=== PATIENT | female | born 1985 | race Caucasian/White ===

== ENCOUNTER 2020-08-09 | Outpatient (REF) | payer BC, SELFPAY ==
[2020-08-10 14:20] LABS: Influenza A PCR NEGATIVE (Negative); Influenza B PCR NEGATIVE (Negative); Resp Syncy Virus RNA Qual PCR NEGATIVE (Negative); SARS COV2 PCR INHOUSE NEGATIVE (Negative)
== END 2020-08-09 00:01 | disposition home or self-care (01) ==
LOC: HO.LNP
PROVIDERS: Visit Provider Nurse Practitioner Family
DX: R51.9 Headache, unspecified (principal)
CPT/HCPCS: 0241U; U0003

== ENCOUNTER 2020-08-09 16:10 | Outpatient (REF) | payer BC, SELFPAY | END 2020-08-09 16:11 | disposition home or self-care (01) | LOC: HO.LAB 16:10 | PROVIDERS: Visit Provider Nurse Practitioner Family | DX: Z13.89 Encounter for screening for other disorder (principal) ==

== ENCOUNTER 2020-10-05 10:35 | Outpatient (REF) | payer BC, SELFPAY ==
[2020-10-07 21:17] LABS: TS Negative Control Passed; TS Panel A 0; TS Panel B 0; TS Positive Control Passed; TSpotTB Negative (SeeBelow)
== END 2020-10-05 10:36 | disposition home or self-care (01) ==
LOC: HO.HMGCLDS 10:35
PROVIDERS: PCP Nurse Practitioner Family; Visit Provider Nurse Practitioner Family
DX: Z11.1 Encounter for screening for respiratory tuberculosis (principal)
CPT/HCPCS: 36415; 86481

== ENCOUNTER 2022-06-28 14:43 | Outpatient (REF) | payer BC, SELFPAY ==
[2022-06-28 16:31] LABS: MANUAL DIFF FLAG NO
[2022-06-28 16:34] LABS: Basophils Absolute Auto 0.1 X10*3/uL (0.0-0.2); Basophils Percent Auto 0.7 % (0-2); Eosinophils Absolute Auto 0.1 X10*3/uL (0.0-0.4); Eosinophils Percent Auto 0.9 % (0-4); Hematocrit 40.1 % (37.0-47.0); Hemoglobin 13.9 g/dl (12.0-16.0); Imm Gran Abs Auto 0.03 X10*3/uL (0.00-0.03); Imm Gran Pct Auto 0.4 % (0.0-0.4); Lymphocytes Absolute Auto 2.5 X10*3/uL (1.2-4.9); Lymphocytes Percent Auto 30.4 % (20-40); Mean Corpuscular HGB Conc 34.7 g/dl (31.0-35.0); Mean Corpuscular Volume 86.6 fL (80.0-98.0); Mean Platelet Volume 11.8 fL (9.4-12.3); Monocytes Absolute Auto 0.4 X10*3/uL (0.1-1.2); Monocytes Percent Auto 4.4 % (2-11); Neutrophils Absolute Auto 5.2 x10*3/uL (2.0-8.3); Neutrophils Percent Auto 63.2 % (45-73); Platelet Count 211 X10*3/uL (160-400); Red Blood Count 4.63 X10*6/uL (4.20-5.50); Red Cell Distribution Width 12.2 % (11.0-16.0); White Blood Count 8.2 X10*3/uL (4.8-10.8)
[2022-06-28 16:45] LABS: Appearance Urine Clear; Color Urine Yellow; Glucose Urine UA Negative (Negative); Leukocyte Esterase Urine Negative (Negative); Nitrite Urine Negative (Negative); PH 5.5 (5.0-9.0); Specific Gravity - Urine >= 1.030 (1.005-1.025); Urine Blood Negative (Negative); Urine Ketones 15 mg/dL (Negative); Urine Protein Negative (Neg-Trace)
[2022-06-28 16:45] LABS: Alanine Aminotransferase 21 U/L (0-31); Albumin Level 4.4 g/dL (3.5-5.0); Alkaline Phosphatase 61 U/L (39-117); Anion Gap 15 (12-20); Aspartate Amino Transferase 21 U/L (5-31); Bilirubin Total 0.8 mg/dL (0.0-1.0); Blood Urea Nitrogen 12 mg/dL (9-16); Carbon Dioxide 25 mmol/L (22-29); Chloride 99 mmol/L (96-108); Cholesterol 178 mg/dL; Estimated Glomerular Filt Rate > 60; Glucose Fasting 79 mg/dL (60-99); HDL Cholesterol 67 mg/dL; LDL Cholesterol Calculated 100 mg/dl; Potassium 3.9 mmol/L (3.3-5.1); Sodium 135 mmol/L (135-145); Total Protein 7.1 g/dL (6.5-8.0); Triglycerides 57 mg/dL
[2022-06-28 17:05] LABS: TSH reflex Free T4 0.62 uIU/mL (0.32-4.0)
== END 2022-06-28 14:44 | disposition home or self-care (01) ==
LOC: HO.HMGCLDS 14:43
PROVIDERS: PCP Nurse Practitioner Family; Visit Provider Nurse Practitioner Family
DX: Z00.00 Encounter for general adult medical examination without abnormal findings (principal)
CPT/HCPCS: 36415; 80053; 80061; 81003; 84443; 85025

== ENCOUNTER 2023-03-05 10:56 | Outpatient (REF) | payer BC, SELFPAY ==
[2023-03-05 13:54] LABS: MANUAL DIFF FLAG NO
[2023-03-05 14:04] LABS: Basophils Absolute Auto 0.1 X10*3/uL (0.0-0.2); Eosinophils Absolute Auto 0.1 X10*3/uL (0.0-0.4); Eosinophils Percent Auto 1.2 % (0-4); Hematocrit 40.4 % (37.0-47.0); Hemoglobin 13.8 g/dl (12.0-16.0); Imm Gran Abs Auto 0.01 X10*3/uL (0.00-0.03); Imm Gran Pct Auto 0.2 % (0.0-0.4); Lymphocytes Absolute Auto 1.9 X10*3/uL (1.2-4.9); Lymphocytes Percent Auto 30.7 % (20-40); Mean Corpuscular HGB Conc 34.2 g/dl (31.0-35.0); Mean Corpuscular Hemoglobin 29.9 pg (27.0-33.0); Mean Corpuscular Volume 87.4 fL (80.0-98.0); Monocytes Absolute Auto 0.2 X10*3/uL (0.1-1.2); Monocytes Percent Auto 3.8 % (2-11); Neutrophils Absolute Auto 3.8 x10*3/uL (2.0-8.3); Neutrophils Percent Auto 63.1 % (45-73); Platelet Count 218 X10*3/uL (160-400); Red Blood Count 4.62 X10*6/uL (4.20-5.50); Red Cell Distribution Width 12.8 % (11.0-16.0)
[2023-03-05 14:23] LABS: Alanine Aminotransferase 12 U/L (0-31); Albumin Level 4.3 g/dL (3.5-5.0); Alkaline Phosphatase 62 U/L (39-117); Anion Gap 11 (12-20); Aspartate Amino Transferase 13 U/L (5-31); Bilirubin Total 0.8 mg/dL (0.0-1.0); Blood Urea Nitrogen 11 mg/dL (9-16); C Reactive Protein 0.35 mg/dL (< or = 0.50); Calcium 9.1 mg/dL (8.4-10.2); Carbon Dioxide 27 mmol/L (22-29); Chloride 104 mmol/L (96-108); Estimated Glomerular Filt Rate > 60; Glucose Random 89 mg/dL (60-115); Potassium 4.1 mmol/L (3.3-5.1); Sodium 138 mmol/L (135-145); Total Protein 7.1 g/dL (6.5-8.0)
[2023-03-05 14:40] LABS: Erythrocyte Sedimentation Rate 3 MM/HR (0-20)
[2023-03-06 17:27] LABS: Adenovirus F 40/41 Not Detected (Not Detect.); Astrovirus Not Detected (Not Detect.); Campylobacter Not Detected (Not Detect.); Cryptosporidium Not Detected (Not Detect.); Cyclospora cayetanensis Not Detected (Not Detect.); E. coli EAEC Not Detected (Not Detect.); E. coli EPEC Not Detected (Not Detect.); E. coli ETEC Not Detected (Not Detect.); E. coli STEC Not Detected (Not Detect.); Entamoeba histolytica Not Detected (Not Detect.); Giardia lamblia Not Detected (Not Detect.); Norovirus GI/GII Not Detected (Not Detect.); Plesiomonas shigelloides Not Detected (Not Detect.); Rotavirus A Not Detected (Not Detect.); Salmonella Not Detected (Not Detect.); Sapovirus Not Detected (Not Detect.); Shigella sp./EIEC Not Detected (Not Detect.); Vibrio Not Detected (Not Detect.); Vibrio Cholerae Not Detected (Not Detect.); Yersinia enterocolitica Not Detected (Not Detect.)
== END 2023-03-05 10:57 | disposition home or self-care (01) ==
LOC: HO.HMGCLDS 10:56
PROVIDERS: PCP Nurse Practitioner Family; Visit Provider Nurse Practitioner Family
DX: R19.7 Diarrhea, unspecified (principal)
CPT/HCPCS: 36415; 80053; 85025; 85652; 86140; 87338; 87493; 87507

== ENCOUNTER 2023-07-31 13:28 | Outpatient (AMB) | payer BC, SELFPAY ==
--- NOTE | 2023-07-31 13:33 | A.OFFPC_ITS ---
Vital Signs 07/31/23 13:36 Height 5 ft 5 in Weight 170 lb BMI 28.3 BP 120/80 Blood Pressure Location Rt brachial Position Sitting Pulse 82 Pulse Source Pulse Oximeter Pulse Oximetry (%) 98 Oxygen Delivery Method Room Air Intake Visit Reasons: Follow up Allergies No Known Allergies [No Known Allergies*] Allergy (Verified 07/31/23 13:37) Medication List - Last Reconciled 07/31/23 by KATERIN Cook sertraline 25 mg PO DAILY 30 days Tobacco use date assessed: 03/05/23 Dental Screening Dental Screen Date: 07/31/23 Did you have a dental visit in the last 12 months?: Yes Did you have a dental problem in the last 6 months where you did not have access to dental care?: No Was dental information given to patient?: Patient has dentist HPI Follow up HPI Details Pt reports a lot of stress and anxiety due to her home and work l rub[employer]. Pt is working to find her own therapist, which i highly recommended. Will start sertraline 25mg. Pt is teary eyed today. Denies any SI and HI. Pt also c/o new onset migraines since April. She reports never having migraines in the past. She does not experience an aura but does have photophobia and sonophobia. Pt reports having these three times a week. She has never had imaging of her head, will order. Pt states that tylenol and ibuprofen do help somewhat. [facility] Surgical History History of section Hx of breast surgery Family History Father HTN (hypertension) Mother HTN (hypertension) Stroke Fibromyalgia Maternal Grandmother CVD (cardiovascular disease) Cancer Maternal Grandfather No problems noted. Paternal Grandmother Cancer Paternal Grandfather No problems noted. Brother No problems noted. Son No problems noted. Daughter No problems noted. Other Substance abuse Social History Housing: House Patient Tobacco Use Status: Never used Tobacco e-Cigarette/Vaping Use: Never Used Second Hand Smoke Exposure: No Current occupational status: employed Current occupational exposures/hazards: Yes Cognitive needs: No Hearing needs: No Vision needs: No Questionnaire PHQ-9 Over the last 2 weeks, how often have you been bothered by any of the following problems? [id number] - PHQ-9 Billing: Patient declined-do not bill Source: Developed by Drs. Bayron Pzoo, Cody Castillo and colleagues, with an educational andrzej from [employer]. Thrive Questionnaire Date Thrive assessed: 07/31/23 I am a: Patient What is your living situation today?: I have a steady place to live Within the past 12 months, did the food you bought not last and you didn't have the money to get more?: Never true Within the past 12 months, did you worry whether your food would run out before you got money to buy more?: Never true AUDIT C Alcohol Use Questionnaire (AUDIT-C) 1. How often do you have a drink containing alcohol?: Monthly or less 2. How many drinks containing alcohol do you have on a typical day when you are drinking?: 1 or 2 3. How often do you have six or more drinks on one occasion?: Never Total Score: 1 PUSHPA-7 AMB Questionnaire PUSHPA-7 Date PUSHPA - 7 assessed: 07/31/23 Feeling nervous, anxious, or on edge: 3 = Nearly every day Not being able to stop or control worryin = Nearly every day Worrying too much about different things: 3 = Nearly every day Trouble relaxin = Nearly every day Being so restless that it is hard to sit still: 2 = More than half the days Becoming easily annoyed or irritable: 3 = Nearly every day Feeling afraid as if something awful might happen: 2 = More than half the days Total PUSHPA-7 score (0-4 normal; 5-9 mild; 10-14 moderate; 15-21 severe): 19 Source: Developed by Drs. Bayron Pozo, Cody Castillo and colleagues, with an educational andrzej from [employer]. Review of Systems Const Reports as per HPI Physical exam (Primary Care) Vital Signs: Last Vital Signs Pulse 82 07/31/23 13:36 BP 120/80 07/31/23 13:36 Pulse Ox 98 07/31/23 13:36 Oxygen Delivery Method Room Air 07/31/23 13:36 BMI result Body Mass Index 28.3 Tobacco/Smoking Status: Tobacco use Status Tobacco use date assessed 03/05/23 07/31/23 13:33 Patient Tobacco Use Status Never used Tobacco 07/31/23 13:33 e-Cigarette/Vaping Use Never Used 07/31/23 13:33 Thrive Assessment: Date of Thrive Assessment Date Thrive assessed 07/31/23 07/31/23 14:27 Const General: cooperative Orientation/consciousness: patient oriented x3 Resp Effort & Inspection: normal respiratory effort Auscultation: clear to auscultation bilaterally Cardio Rate: regular rate Rhythm: regular rhythm Heart sounds: S1 normal heart sound present and S2 normal heart sound present Neuro General: patient oriented x3 and CN's II-XI intact bilaterally Psych Appearance: grossly normal Mental Status: mental status grossly normal Speech and movement: Normal speech and movement present Affect: normal affect Attitude: cooperative Thought process: Normal thought process present Thought content: Normal thought content present Insight: Good insight present (Psych) Judgement: Good judgement present (Psych) Assessment and Plan Assessment & Plan (1) New onset headache: Code(s): R51.9 - Headache, unspecified Orders: Orders CT head/brain wo IV con Today R51.9 - Headache, unspecified Medications: New sertraline 25 mg PO DAILY 30 days 30 tabs 2RF sertraline 25 mg PO DAILY 30 days 30 tabs 2RF Discontinued fluoxetine Discontinued Reason: Duplicate 10 mg PO DAILY 90 days 90 caps 2RF Coding Level of Care Code Est Pt Level 3 (07123) Diagnoses New onset headache R51.9
[2023-07-31 13:36] VITALS: BP 120/80; PULSE 82; O2SAT 98; BMI 28.3
== END 2023-07-31 16:53 | disposition home or self-care (01) ==
PROVIDERS: PCP Nurse Practitioner Family; Visit Provider Nurse Practitioner Family
DX: R51.9 Headache, unspecified (principal)
CPT/HCPCS: 99213

== ENCOUNTER 2023-08-14 08:22 | Outpatient (AMB) | payer BC, SELFPAY ==
[2023-08-14 08:48] VITALS: BP 130/80; PULSE 76; TEMP 36.6; O2SAT 98; BMI 28.3
--- NOTE | 2023-08-14 08:48 | AM.OFFWIN_ITS ---
Intake Vital Signs 08/14/23 08:48 Height 5 ft 5 in Weight 170 lb BMI 28.3 BP 130/80 Blood Pressure Location Rt brachial Position Sitting Pulse 76 Pulse Source Pulse Oximeter Temp 97.8 F Temp Source Temporal Artery Scan Pulse Oximetry (%) 98 Intake Visit Reasons: EP, cough, laryngitis ([phone]) Intake Note: pt is here for c/o cough, laryngitis Patient Tobacco Use Status: Never used Tobacco Allergies No Known Allergies [No Known Allergies*] Allergy (Verified 08/14/23 09:03) Medication List - Last Reconciled 08/14/23 by Rome Barber MD azithromycin (Zithromax) take 500 mg today (day 1), then 250 mg for 4 days (days 2-5) PO prednisone 60 mg (3 x 20 mg) PO DAILY sertraline 25 mg PO DAILY 30 days Do you need a note to return to daycare/school/sports/work: Yes HPI EP, cough, laryngitis ([phone]) HPI Details Patient presents for a sick visit. Reporting symptoms of sinus congestion, sore throat and difficulty swallowing. Low-grade fever. No family member is sick. No recent travel. Patient reports symptoms of malaise and fatigue. [facility] Surgical History History of section Hx of breast surgery Family History Father HTN (hypertension) Mother HTN (hypertension) Stroke Fibromyalgia Maternal Grandmother CVD (cardiovascular disease) Cancer Maternal Grandfather No problems noted. Paternal Grandmother Cancer Paternal Grandfather No problems noted. Brother No problems noted. Son No problems noted. Daughter No problems noted. Other Substance abuse Social History Housing: House Patient Tobacco Use Status: Never used Tobacco e-Cigarette/Vaping Use: Never Used Second Hand Smoke Exposure: No Current occupational status: employed Current occupational exposures/hazards: Yes Cognitive needs: No Hearing needs: No Vision needs: No Physical Exam Vital Signs: Last Vital Signs Temp 97.8 F 08/14/23 08:48 Pulse 76 08/14/23 08:48 BP 130/80 08/14/23 08:48 Pulse Ox 98 08/14/23 08:48 BMI result Body Mass Index 28.3 Const General: cooperative and healthy appearing Nutritional Appearance: well nourished Orientation/consciousness: patient oriented x3 Limitations: no limitations HEENT Head: Yes normal to inspection Eyes General: appearance normal, both eyes and all related structures Neck Neck: Yes normal visual inspection Chest Chest palpation & inspection: normal palpation of entire chest wall Resp Effort & Inspection: normal respiratory effort Neuro General: patient oriented x3 Assessment & Plan Assessment & Plan (1) Upper respiratory tract infection: Code(s): J06.9 - Acute upper respiratory infection, unspecified Plan: Antibiotics ordered. Increase fluid intake. Tylenol for aches and pains. If symptoms worsen, follow-up here for a recheck. Medications: New azithromycin (Zithromax) take 500 mg today (day 1), then 250 mg for 4 days (days 2-5) PO 6 tabs 0RF prednisone 60 mg (3 x 20 mg) PO DAILY 9 tabs 0RF Coding Level of Care Code Est Pt Level 3 (90341) Diagnoses Upper respiratory tract infection J06.9
== END 2023-08-14 09:09 | disposition home or self-care (01) ==
PROVIDERS: PCP Nurse Practitioner Family; Visit Provider Internal Medicine
DX: J06.9 Acute upper respiratory infection, unspecified (principal)
CPT/HCPCS: 99213

== ENCOUNTER 2023-08-20 13:46 | Outpatient (AMB) | payer BC, SELFPAY ==
[2023-08-20 14:35] VITALS: BP 110/72; PULSE 106; TEMP 36.2; O2SAT 98; BMI 28.3
--- NOTE | 2023-08-20 14:35 | AM.OFFWIN_ITS ---
Intake Vital Signs 08/20/23 14:35 Height 5 ft 5 in Weight 170 lb BMI 28.3 BP 110/72 Blood Pressure Location Lt brachial Position Sitting Pulse 106 H Pulse Source Pulse Oximeter Temp 97.2 F Temp Source Temporal Artery Scan Pulse Oximetry (%) 98 Oxygen Delivery Method Room Air Intake Visit Reasons: EST/cold and flu symptoms/ [phone] Intake Note: pt is here for c.o follow up from last weeks visit, finished medication but no relief Patient Tobacco Use Status: Never used Tobacco Allergies No Known Allergies [No Known Allergies*] Allergy (Verified 08/20/23 15:28) Medication List - Last Reconciled 08/20/23 by Rome Barber MD sertraline 25 mg PO DAILY 30 days Do you need a note to return to daycare/school/sports/work: Yes HPI EST/cold and flu symptoms/ [phone] HPI Details 38-year-old female presents to the [facility] for a sick visit. Patient was last seen for an upper respiratory tract infection last week. She is completed the antibiotic and prednisone. Continues to feel congested and tight. Reports no fever or chills. Continues to have headaches. [facility] Surgical History History of section Hx of breast surgery Family History Father HTN (hypertension) Mother HTN (hypertension) Stroke Fibromyalgia Maternal Grandmother CVD (cardiovascular disease) Cancer Maternal Grandfather No problems noted. Paternal Grandmother Cancer Paternal Grandfather No problems noted. Brother No problems noted. Son No problems noted. Daughter No problems noted. Other Substance abuse Housing: House Patient Tobacco Use Status: Never used Tobacco e-Cigarette/Vaping Use: Never Used Second Hand Smoke Exposure: No Current occupational status: employed Current occupational exposures/hazards: Yes Cognitive needs: No Hearing needs: No Vision needs: No Physical Exam Vital Signs: Last Vital Signs Temp 97.2 F 08/20/23 14:35 Pulse 106 H 08/20/23 14:35 BP 110/72 08/20/23 14:35 Pulse Ox 98 08/20/23 14:35 Oxygen Delivery Method Room Air 08/20/23 14:35 BMI result Body Mass Index 28.3 Const General: cooperative and healthy appearing Nutritional Appearance: well nourished Orientation/consciousness: patient oriented x3 Limitations: no limitations HEENT Head: Yes normal to inspection Eyes General: appearance normal, both eyes and all related structures Neck Neck: Yes normal visual inspection Chest Chest palpation & inspection: normal palpation of entire chest wall Resp Effort & Inspection: normal respiratory effort Neuro General: patient oriented x3 Assessment & Plan Assessment & Plan (1) Upper respiratory tract infection: Code(s): J06.9 - Acute upper respiratory infection, unspecified Plan: Prednisone reordered. No further antibiotics needed. Rapid COVID testing done in the office was negative. Viral swab has been sent out. Note for work given. Orders: Orders XR chest 2V Today R05.9 - Cough, unspecified BinaxNOW Covid-19 Ag Today J06.9 - Acute upper respiratory infection, unspecified SARS-CoV2/FLU/RSV Today R43.9 - Unspecified disturbances of smell and taste Coding Level of Care Code Est Pt Level 4 (30027) Diagnoses Upper respiratory tract infection J06.9
== END 2023-08-20 15:42 | disposition home or self-care (01) ==
PROVIDERS: PCP Nurse Practitioner Family; Visit Provider Internal Medicine
DX: J06.9 Acute upper respiratory infection, unspecified (principal)
CPT/HCPCS: 99214

== ENCOUNTER 2023-08-20 14:48 | Outpatient (REF) | payer BC, SELFPAY ==
--- NOTE | ~2023-08-20 | XR_ITS ---
EXAMINATION: XR CHEST CLINICAL INFORMATION: Cough. COMPARISON: Chest radiograph 03/31/2020. TECHNIQUE: 2 views of the chest were obtained. FINDINGS: Normal appearance of the cardiomediastinal silhouette. No focal airspace opacities, pleural effusion or pneumothorax. No acute osseous findings. Visualized upper abdomen is within normal limits. XR/XR chest 2V IMPRESSION: No acute cardiopulmonary findings.
[2023-08-20 15:15] LABS: Binax Internal Control QC Valid; Binax Now Covid-19 Ag Negative (Negative); Binax Performed by: PAULP
[2023-08-20 17:05] LABS: Influenza A PCR NEGATIVE (Negative); Influenza B PCR NEGATIVE (Negative); Resp Syncy Virus RNA Qual PCR NEGATIVE (Negative); SARS COV2 PCR INHOUSE NEGATIVE (Negative)
== END 2023-08-20 14:49 | disposition home or self-care (01) ==
LOC: HO.HMGCX 14:48
PROVIDERS: PCP Nurse Practitioner Family; Visit Provider Internal Medicine
DX: Z11.52 Encounter for screening for COVID-19 (principal); R05.9 Cough, unspecified; J06.9 Acute upper respiratory infection, unspecified; R43.9 Unspecified disturbances of smell and taste
CPT/HCPCS: 0241U; 71046; 87811; C9803

== ENCOUNTER 2023-08-21 10:46 | Outpatient (REF) | payer BC, SELFPAY ==
[2023-08-21 13:29] LABS: MANUAL DIFF FLAG NO
[2023-08-21 13:30] LABS: Basophils Percent Auto 0.1 % (0-2); Eosinophils Percent Auto 0.1 % (0-4); Hematocrit 42.5 % (37.0-47.0); Hemoglobin 14.7 g/dl (12.0-16.0); Imm Gran Abs Auto 0.04 X10*3/uL (0.00-0.03); Imm Gran Pct Auto 0.5 % (0.0-0.4); Lymphocytes Absolute Auto 1.7 X10*3/uL (1.2-4.9); Lymphocytes Percent Auto 19.4 % (20-40); Mean Corpuscular HGB Conc 34.6 g/dl (31.0-35.0); Mean Corpuscular Hemoglobin 30.1 pg (27.0-33.0); Mean Corpuscular Volume 86.9 fL (80.0-98.0); Mean Platelet Volume 11.4 fL (9.4-12.3); Monocytes Absolute Auto 0.3 X10*3/uL (0.1-1.2); Monocytes Percent Auto 3.9 % (2-11); Neutrophils Absolute Auto 6.7 x10*3/uL (2.0-8.3); Platelet Count 270 X10*3/uL (160-400); Red Blood Count 4.89 X10*6/uL (4.20-5.50); White Blood Count 8.8 X10*3/uL (4.8-10.8)
[2023-08-21 13:43] LABS: Alanine Aminotransferase 16 U/L (0-31); Albumin Level 4.4 g/dL (3.5-5.0); Alkaline Phosphatase 69 U/L (39-117); Anion Gap 14 (12-20); Aspartate Amino Transferase 16 U/L (5-31); Bilirubin Total 0.7 mg/dL (0.0-1.0); Blood Urea Nitrogen 9 mg/dL (9-16); Calcium 9.2 mg/dL (8.4-10.2); Carbon Dioxide 26 mmol/L (22-29); Chloride 101 mmol/L (96-108); Estimated Glomerular Filt Rate > 60; Glucose Random 93 mg/dL (60-115); Potassium 3.5 mmol/L (3.3-5.1); Sodium 137 mmol/L (135-145); Total Protein 7.7 g/dL (6.5-8.0)
== END 2023-08-21 10:47 | disposition home or self-care (01) ==
LOC: HO.HMGCLDS 10:46
PROVIDERS: PCP Nurse Practitioner Family; Visit Provider Nurse Practitioner Family
DX: J98.9 Respiratory disorder, unspecified (principal)
CPT/HCPCS: 36415; 80053; 85025

== ENCOUNTER 2023-08-30 16:20 | Outpatient (AMB) | payer BC, SELFPAY ==
--- NOTE | 2023-08-30 16:15 | A.OFFPC_ITS ---
Vital Signs 08/30/23 16:24 Height 5 ft 5 in Weight 184 lb BMI 30.6 BP 120/78 Blood Pressure Location Rt brachial Position Sitting Pulse 64 Pulse Source Pulse Oximeter Intake Visit Reasons: Annual PE Intake Note: Patient here for physical exam. up to date on pap. Allergies No Known Allergies [No Known Allergies*] Allergy (Verified 08/30/23 16:26) Medication List - Last Reconciled 08/30/23 by KATERIN Cook sertraline 25 mg PO DAILY 30 days Tobacco use date assessed: 03/05/23 Dental Screening Dental Screen Date: 08/30/23 Did you have a dental visit in the last 12 months?: Yes Did you have a dental problem in the last 6 months where you did not have access to dental care?: No Was dental information given to patient?: Patient has dentist HPI Annual PE HPI Details Pt is here for a PE. Will order labs. 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 started sertraline one month ago, she does report noticing a slight difference in anxiety since starting this med. Will follow up with her [facility] Surgical History Hx of breast surgery History of section Family History Father HTN (hypertension) Mother HTN (hypertension) Stroke Fibromyalgia Maternal Grandmother CVD (cardiovascular disease) Cancer Maternal Grandfather No problems noted. Paternal Grandmother Cancer Paternal Grandfather No problems noted. Brother No problems noted. Son No problems noted. Daughter No problems noted. Other Substance abuse Social History Housing: House Patient Tobacco Use Status: Never used Tobacco e-Cigarette/Vaping Use: Never Used Second Hand Smoke Exposure: No Current occupational status: employed Current occupational exposures/hazards: Yes Cognitive needs: No Hearing needs: No Vision needs: No Questionnaire Thrive Questionnaire Date Thrive assessed: 07/31/23 AUDIT C Alcohol Use Questionnaire (AUDIT-C) 1. How often do you have a drink containing alcohol?: Never 3. How often do you have six or more drinks on one occasion?: Never Total Score: 0 Score Reviewed/Action Taken: No PUSHPA-7 AMB Questionnaire PUSHPA-7 Date PUSHPA - 7 assessed: 07/31/23 Source: Developed by Drs. Bayron Pozo, Clarisse Sutton, Cody Lee and colleagues, with an educational andrzej from [employer]. Review of Systems Const Denies chills and Denies fever(s) Eyes Denies blurry vision ENT Denies vertigo, Denies dizziness and Denies sore throat Card Denies chest pain at rest, Denies chest pain with activity, Denies diaphoresis, Denies dyspnea and Denies dyspnea on exertion Resp Denies cough, Denies dyspnea, Denies dyspnea on exertion and Denies wheezing GI Denies abdominal pain, Denies melena, Denies hematochezia, Denies constipation, Denies diarrhea and Denies loose stools Denies hematuria Musc Denies numbness and Denies tingling Skin/Breast Denies lesions Neuro Denies vertigo, Denies dizziness, Denies numbness and Denies tingling Psych Denies anxiety, Denies depression, Denies homicidal ideation, Denies suicidal ideation and Denies other (substance abuse) Aller/Immun Denies wheezing Physical exam (Primary Care) Vital Signs: Last Vital Signs Pulse 64 08/30/23 16:24 BP 120/78 08/30/23 16:24 BMI result Body Mass Index 30.6 Tobacco/Smoking Status: Tobacco use Status Tobacco use date assessed 03/05/23 08/30/23 16:15 Patient Tobacco Use Status Never used Tobacco 08/30/23 16:15 e-Cigarette/Vaping Use Never Used 08/30/23 16:15 Thrive Assessment: Date of Thrive Assessment Date Thrive assessed 07/31/23 08/30/23 16:15 Const General: cooperative Nutritional Appearance: well nourished Orientation/consciousness: patient oriented x3 HENMT Head: Yes normal to inspection, Yes normocephalic and Yes atraumatic Ears: TM's normal bilaterally Eyes General: appearance normal, both eyes and all related structures Alignment and Position: alignment normal and position normal Neck Neck: Yes normal visual inspection and Yes no lymphadenopathy Thyroid: Thyroid normal Resp Effort & Inspection: normal respiratory effort Auscultation: clear to auscultation bilaterally Cardio Rate: regular rate Rhythm: regular rhythm Heart sounds: S1 normal heart sound present, S2 normal heart sound present and Murmur heart sound present systolic (faint) GI Palpation (GI): Soft to palpation and nontender Auscultation: normal bowel sounds Skin Rashes: no rashes Neuro General: patient oriented x3, moves all extremities, no focal motor deficits and deep tendon reflexes 2+ bilaterally Romberg Test: Negative Psych Appearance: grossly normal Mental Status: mental status grossly normal Speech and movement: Normal speech and movement present Affect: normal affect Attitude: cooperative Thought process: Normal thought process present Thought content: Normal thought content present Insight: Good insight present (Psych) Judgement: Good judgement present (Psych) Assessment and Plan Assessment & Plan (1) Physical exam: Code(s): Z00.00 - Encounter for general adult medical examination without abnormal findings (2) Systolic murmur: Code(s): R01.1 - Cardiac murmur, unspecified Orders: Orders Complete Blood Count Auto Diff Today Z00.00 - Encounter for general adult medical examination without abnormal findings Comprehensive Gregory. Panel Fast Today Z00.00 - Encounter for general adult medical examination without abnormal findings TSH reflex Free T4 Today Z00.00 - Encounter for general adult medical examination without abnormal findings UA CC w/rflx Micro + Cult Today Z00.00 - Encounter for general adult medical examination without abnormal findings Lipid Panel Today Z00.00 - Encounter for general adult medical examination without abnormal findings CA echo transthoracic complete Today R01.1 - Cardiac murmur, unspecified Coding Level of Care Code Est Pt Prev Care 18-39y(43815) Diagnoses Physical exam Z00.00 Systolic murmur R01.1
[2023-08-30 16:24] VITALS: BP 120/78; PULSE 64; BMI 30.6
== END 2023-08-30 17:12 | disposition home or self-care (01) ==
LOC: HO.HMGC 16:20
PROVIDERS: PCP Nurse Practitioner Family; Visit Provider Nurse Practitioner Family
DX: Z00.00 Encounter for general adult medical examination without abnormal findings (principal); R01.1 Cardiac murmur, unspecified
CPT/HCPCS: 99395

== ENCOUNTER 2023-09-05 14:46 | Outpatient (REF) | payer BC, SELFPAY ==
--- NOTE | ~2023-09-05 | CT_ITS ---
EXAMINATION: CT head/brain wo IV con CLINICAL INFORMATION: Reason for Exam R51.9 - Headache, unspecified COMPARISON: None available. TECHNIQUE: Contiguous axial imaging was performed from the skull base to vertex without intravenous contrast. Sagittal and coronal reformatted images were obtained. This CT examination was performed using dose optimization techniques as appropriate, variously including the following: * Automated exposure control * Adjustment of mA and/or kV according to patient size (this includes techniques or standardized protocols for targeted exams where dose is matched to indication/reason for exam; i.e. extremities or head) Use of iterative reconstruction technique DLP: 722 mGy-cm FINDINGS: There is no evidence of acute intracranial hemorrhage. No mass-effect or ventricular shift is noted. No acute, territorial loss of serrato-white differentiation. The ventricles and sulci are appropriate in size and configuration for the patient's stated age. No depressed calvarial fracture. The paranasal sinuses are well-aerated. The mastoid air cells are clear. CT/CT head/brain wo IV con IMPRESSION: No acute intracranial hemorrhage, mass effect, or midline shift.
== END 2023-09-05 14:47 | disposition home or self-care (01) ==
LOC: HO.CT 14:46
PROVIDERS: PCP Nurse Practitioner Family; Visit Provider Nurse Practitioner Family
DX: R51.9 Headache, unspecified (principal)
CPT/HCPCS: 70450

== ENCOUNTER → 2023-09-20 07:50 | Outpatient (REF) | payer BC, SELFPAY ==
--- NOTE | 2023-09-20 07:53 | CA_ITS ---
Transthoracic Echocardiogram Patient (Last, First, Middle): Elham Recio M Gender: Female Date of : 1985 Age: 38 Procedure Date: 09/20/2023 Procedure Type: Transthoracic Echocardiogram Location: OP Height: 167.64 cm Weight: 81.65 kg BSA: 1.91 m2 Heart Rate: bpm BP: 120 / 70 mmHg Last Marker: HUMBERTO Referring MD: Sage Marks [facility] Symptoms: R01.1 - Cardiac murmur, unspecified Study Quality: Fair ECG Rhythm: Sinus Conclusions: - The left ventricular systolic function is normal. The calculated ejection fraction is 63% by biplane method. - No obvious valvular pathology seen on this study. Findings Left Ventricle Normal left ventricular cavity size. There is normal left ventricular wall thickness. The left ventricular systolic function is normal. The calculated ejection fraction is 63% by biplane method. There is no evidence of regional wall motion abnormalities. Diastolic function is normal for age. Right Ventricle Normal right ventricular cavity size and systolic function. Atria Both atria are normal in size. Aortic Valve There is a normal trileaflet aortic valve. There is no aortic valve stenosis. There is no aortic valve regurgitation. Mitral Valve The mitral valve appears normal. There is no mitral valve regurgitation. There is no mitral valve stenosis. Pulmonic Valve The pulmonic valve is likely normal. Tricuspid Valve Normal tricuspid valve structure. There is trace tricuspid valve regurgitation. There is no evidence of pulmonary hypertension. Great Vessels The asc aorta and aortic arch are normal in size. Venous The inferior vena cava is normal in size and collapses greater than 50% with inspiration. Pericardium/Pleural There is no evidence of pericardial effusion. Prior Study Comparison No prior study available for comparison. Recommendations, Care & Conclusions No obvious valvular pathology seen on this study. Measurements 2D Linear Measurements IVSd: 0.72 0.6-0.9/0.6-1.0 cm LVIDd: 4.95 3.9-5.3/4.2-5.9 cm LVIDd Index: 2.59 2.4-3.2/2.2-3.1 cm/m2 LVIDs: 3.66 2.0-3.6 cm LVPWd: 0.85 0.7-1.1 cm LA Diam: 2.60 2.7-3.8/3.0-4.0 cm LAIDs Index: 1.36 1.5-2.3 cm/m2 LV Mass: 162.51 67-162/88-224 g LV Mass Index: 85.09 43-95/49-115 g/m2 LVOT Diam: 2.10 3.0+(-)1.3 cm 2D Systolic Function EF 4C: 60.60 >55% EF 2C: 62.60 >55% EF BiP: 63.00 >55% Mitral Valve MV Pk E: 0.85 MV PK A: 0.55 MV Decel Time: 189.00 E/A: 1.60 E'Lateral: 16.40 E'Medial: 11.40 E/E' Med: 7.40 E/E' Lat: 5.20 PHT: 55.00 MVA PHT: 4.00 Decel [place]: 4.48 Aortic Valve AoV Pk Reese: 1.17 AoV Mn Reese: 0.84 AoV VTI: 0.28 AoV Pk Grad: 5.00 Aov Mn Grad: 3.00 [place] Cont.VTI: 2.43 LVOT LVOT Pk Reese: 0.84 LVOT Mn Reese: 0.59 LVOT VTI: 0.20 LVOT Pk Grad: 3.00 LVOT Mn Grad: 2.00 LVOT Diam: 2.10 LVOT Area: 3.46 Diastolic Function MV Pk E: 0.85 MV Pk A: 0.55 E/A: 1.60 E'Medial: 11.40 E/E' Med: 7.40 E' Laterial: 16.40 E/E' Lat: 5.20 Right Ventricle TAPSE (mm): 23.50 TVS' Reese: 12.60 Tricuspid Valve RA Press: 3.00 Great Vessels Aorta Sinus of Valsalva: 2.67 2.0-3.[address] [place]: 2.13 1.7-3.4 cm Ao Asc: 2.60 2.1-3.4 cm Ao Arch: 2.60 Updated in Other Vendor System with Status of Final Mann Handy MD electronically signed on 09/22/2023 11:41:57 AM with status of Final
== END ==
LOC: HO.CARD 07:50
PROVIDERS: PCP Nurse Practitioner Family; Visit Provider Nurse Practitioner Family
DX: R01.1 Cardiac murmur, unspecified (principal)
CPT/HCPCS: 93306

== ENCOUNTER → 2023-09-20 07:53 | Outpatient (BNV) | payer BC, SELFPAY | PROVIDERS: PCP Nurse Practitioner Family; Visit Provider Internal Medicine | DX: R01.1 Cardiac murmur, unspecified (principal) | CPT/HCPCS: 93306 ==

== ENCOUNTER 2023-12-20 10:02 | Outpatient (AMB) | payer BC, SELFPAY ==
[2023-12-20 10:13] VITALS: BP 118/70; PULSE 66; O2SAT 98
--- NOTE | 2023-12-20 10:13 | A.OFFPC_ITS ---
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 Accompanied by: Self / Same As Patient Allergies No Known Allergies [No Known Allergies*] Allergy (Verified 12/20/23 12:02) Medication List - Last Reconciled 12/20/23 by KATERIN Cook amitriptyline 10 mg PO BEDTIME lorazepam 0.5 mg PO DAILY PRN sertraline 25 mg PO DAILY Tobacco use date assessed: 12/20/23 Dental Screening Dental Screen Date: 12/20/23 Did you have a dental visit in the last 12 months?: Yes Did you have a dental problem in the last 6 months where you did not have access to dental care?: No Was dental information given to patient?: Patient has dentist HPI Follow up HPI Details Pt c/o intermittent anxiety attacks. She reports that her sertraline is helping. Will send lorazepam for acute anxiety attacks. Educated pt on risk of addiction, this is not a long-term med. Pt understands that they can not drive while taking this med, share this med, and to only take as prescribed. Denies any SI and HI. PFSH Surgical History Hx of breast surgery History of section Family History Father HTN (hypertension) Mother HTN (hypertension) Stroke Fibromyalgia Maternal Grandmother CVD (cardiovascular disease) Cancer Maternal Grandfather No problems noted. Paternal Grandmother Cancer Paternal Grandfather No problems noted. Brother No problems noted. Son No problems noted. Daughter No problems noted. Other Substance abuse Social History Housing: House Patient Tobacco Use Status: Never used Tobacco e-Cigarette/Vaping Use: Never Used Second Hand Smoke Exposure: No Current occupational status: employed Current occupational exposures/hazards: Yes Cognitive needs: No Hearing needs: No Vision needs: No Questionnaire Thrive Questionnaire Date Thrive assessed: 07/31/23 I am a: Patient What is your living situation today?: I have a steady place to live Within the past 12 months, did the food you bought not last and you didn't have the money to get more?: Never true Within the past 12 months, did you worry whether your food would run out before you got money to buy more?: Never true THRIVE Score: 0 AUDIT C Alcohol Use Questionnaire (AUDIT-C) 1. How often do you have a drink containing alcohol?: Never 2. How many drinks containing alcohol do you have on a typical day when you are drinking?: 1 or 2 3. How often do you have six or more drinks on one occasion?: Never Total Score: 0 PUSHPA-7 AMB Questionnaire PUSHPA-7 Date PUSHPA - 7 assessed: 07/31/23 Feeling nervous, anxious, or on edge: 1 = Several days Not being able to stop or control worryin = Several days Worrying too much about different things: 1 = Several days Trouble relaxin = Several days Being so restless that it is hard to sit still: 0 = Not at all Becoming easily annoyed or irritable: 1 = Several days Feeling afraid as if something awful might happen: 0 = Not at all Total PUSHPA-7 score (0-4 normal; 5-9 mild; 10-14 moderate; 15-21 severe): 5 Source: Developed by Drs. Bayron Pozo, Clarisse Sutton, Cody eLe and colleagues, with an educational andrzej from [employer]. Review of Systems Const Reports as per HPI Physical exam (Primary Care) Vital Signs: Last Vital Signs Pulse 66 12/20/23 10:13 BP 118/70 12/20/23 10:13 Pulse Ox 98 12/20/23 10:13 Oxygen Delivery Method Room Air 12/20/23 10:13 BMI result Body Mass Index 30.0 Tobacco/Smoking Status: Tobacco use Status Tobacco use date assessed 12/20/23 12/20/23 10:15 Patient Tobacco Use Status Never used Tobacco 12/20/23 10:15 e-Cigarette/Vaping Use Never Used 12/20/23 10:15 Thrive Assessment: Date of Thrive Assessment Date Thrive assessed 07/31/23 12/20/23 10:15 Const General: cooperative Orientation/consciousness: patient oriented x3 Resp Effort & Inspection: normal respiratory effort Auscultation: clear to auscultation bilaterally Cardio Rate: regular rate Rhythm: regular rhythm Heart sounds: S1 normal heart sound present and S2 normal heart sound present Neuro General: patient oriented x3 Psych Appearance: grossly normal Mental Status: mental status grossly normal Speech and movement: Normal speech and movement present Affect: normal affect Attitude: cooperative Thought process: Normal thought process present Thought content: Normal thought content present Insight: Good insight present (Psych) Judgement: Good judgement present (Psych) Assessment and Plan Assessment & Plan (1) Anxiety: Code(s): F41.9 - Anxiety disorder, unspecified Plan: sent low dose benzo for acute panic/anxiety attacks . may consider increasing sertraline dose in near future Medications: New lorazepam 0.5 mg PO DAILY PRN 30 tabs 0RF anxiety Coding Level of Care Code Est Pt Level 3 (33335) Diagnoses Anxiety F41.9
== END 2023-12-20 11:29 | disposition home or self-care (01) ==
PROVIDERS: PCP Nurse Practitioner Family; Visit Provider Nurse Practitioner Family
DX: F41.9 Anxiety disorder, unspecified (principal)
CPT/HCPCS: 99213

== ENCOUNTER 2023-12-20 10:49 | Outpatient (REF) | payer BC, SELFPAY ==
[2023-12-21 04:23] LABS: HBS Num1 > 1000.00 mIU/mL (0-7.99); HBc Num1 0.08 S/CO (0.00-0.79); HBsAGNum1 0.26 S/CO (0.00-0.99); Hepatitis A Antibody IgM 0.11 Index (0-0.79); Hepatitis B Core Antibody Nonreactive (Nonreactive); Hepatitis B Surface Antigen Negative (Negative); ~HepC Num1 0.15 S/CO (0.00-0.79); ~Hepatitis A Antibody IgM Nonreactive (Nonreactive); ~Hepatitis B Surface Antibody REACTIVE (Nonreactive); ~Hepatitis C Antibody Nonreactive (Nonreactive)
[2023-12-21 12:32] LABS: Rubella IgG Antibody 1.93 Index
[2023-12-23 05:13] LABS: TS Negative Control Passed; TS Panel A 0; TS Panel B 0; TS Positive Control Passed; TSpotTB Negative (Negative)
== END 2023-12-20 10:50 | disposition home or self-care (01) ==
LOC: HO.HMGCLDS 10:49
PROVIDERS: PCP Nurse Practitioner Family; Visit Provider Nurse Practitioner Family
DX: Z01.84 Encounter for antibody response examination (principal); Z28.39 Other underimmunization status
CPT/HCPCS: 36415; 86481; 86704; 86706; 86709; 86735; 86762; 86765; 86787; 86803; 87340

== ENCOUNTER 2024-09-11 08:26 | Outpatient (REF) | payer OTHER, SELFPAY ==
[2024-09-14 16:24] LABS: TS Negative Control Passed; TS Panel A 0; TS Panel B 0; TS Positive Control Passed; TSpotTB Negative (Negative)
== END 2024-09-11 08:27 | disposition home or self-care (01) ==
LOC: HO.HMGCLDS 08:26
PROVIDERS: PCP Nurse Practitioner Family; Visit Provider Nurse Practitioner Family
DX: Z11.1 Encounter for screening for respiratory tuberculosis (principal)
CPT/HCPCS: 36415; 86481; 86787

== ENCOUNTER 2024-09-18 15:49 | Outpatient (AMB) | payer BC, SELFPAY ==
--- NOTE | 2024-09-18 15:58 | A.OFFPC_ITS ---
Vital Signs 09/18/24 15:59 Height 5 ft 5 in Weight 190 lb BMI 31.6 BP 126/80 Blood Pressure Location Lt brachial Position Sitting Pulse 76 Pulse Source Pulse Oximeter Pulse Oximetry (%) 99 Oxygen Delivery Method Room Air Intake Visit Reasons: PE Intake Note: Pt is here today for PE. Allergies No Known Allergies [No Known Allergies*] Allergy (Verified 09/18/24 17:12) Medication List - Last Reconciled 09/18/24 by DARIAN Cook- amitriptyline 10 mg PO BEDTIME lorazepam 0.5 mg PO DAILY PRN sertraline 50 mg PO DAILY Tobacco use date assessed: 09/18/24 Dental Screening Dental Screen Date: 09/18/24 Did you have a dental visit in the last 12 months?: Yes Did you have a dental problem in the last 6 months where you did not have access to dental care?: No Was dental information given to patient?: Patient has dentist HPI PE HPI Details History of Present Illness The patient is a 39-year-old female presenting for a PE visit and evaluation of stress management related to her current circumstances. 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 The patient denies chest pain, shortness of breath, gastrointestinal bleeding, constipation, diarrhea, suicidal ideation, homicidal ideation, major depression, and major anxiety. She has a general practitioner for gynecological care. No prior medical treatment or historical health issues were explicitly addressed. This pt does have signisficant pain, pointing to her lateral right foot, it was bruised for awhile . Pt originally injured it 3 months ago (approx), twisting, feeling a pop and severe pain to this region of the foot. She still reports ongoing pain to this region. Health Maintenance - Encouraged patient to have laboratory tests drawn for routine health maintenance and monitoring. 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 - Reports not being under significant st ress despite school and work demands. Review of Systems - Cardiovascular: Denies chest pain. - Respiratory: Denies shortness of breat h. - Gastrointestinal: Denies blood in stoo l, constipation, and diarrhea. - Psychological: Denies ongoing suicidal ideation, homicidal ideation, depression, and anxiety. Physical Exam General: Cooperative, healthy appearing, comfortable, no acute distress and well developed Orientation: Patient oriented x3 Limitations: No limitations Head: Normal to inspection Ears: Hearing grossly normal bilaterally Nose: Normal external nose present Face and sinus: Normal facial exam Eyes: Appearance normal, both eyes and all related structures Neck: Normal visual inspection and Yes full ROM Respiratory: Normal respiratory effort and able to speak in complete sentences. Clear to auscultation bilaterally Cardiovascular: Regular rate and rhythm. S1 and S2 are clear GI: Normal to inspection. Soft to palpation and nontender Skin: No rashes or lesions noted. right lateral foot, inversion exacerbated pain to this region, no active swelling. able to dorsiflex and plantar flex against resistance. + DP Neuro: Patient oriented x3 Extremities: Normal to inspection Results Plan - Advised the patient to proceed with la boratory tests to maintain general health. - Encouraged ongoing management of stres s through healthy lifestyle choices. - Reinforced the importance of regular f ollow-up with her quickbooks bookkeeper. Patient was informed and verbally consented to the use of an ambient scribe for clinic note documentation during this visit. Discussion Notes I discussed with the patient the importance of maintaining her health through regular check-ups and monitoring stress levels. 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 I encouraged her to complete her laboratory tests to ensure routine health monitoring. Additionally, I emphasized the significance of regular gynecological care. Patient Instructions - Schedule and complete recommended labo ratory tests. - Continue to use stress talent management manager niques and monitor stress levels. - Follow up with her quickbooks bookkeeper as rememo uireanna for routine care. [facility] Surgical History Hx of breast surgery History of section Family History Father HTN (hypertension) Mother HTN (hypertension) Stroke Fibromyalgia Maternal Grandmother CVD (cardiovascular disease) Cancer Maternal Grandfather No problems noted. Paternal Grandmother Cancer Paternal Grandfather No problems noted. Brother No problems noted. Son No problems noted. Daughter No problems noted. Other Substance abuse Social History Housing: House Patient Tobacco Use Status: Never used Tobacco e-Cigarette/Vaping Use: Never Used Second Hand Smoke Exposure: No service: No Current occupational status: employed Current occupational exposures/hazards: Yes Cognitive needs: No Hearing needs: No Vision needs: No Questionnaire PHQ-9 Over the last 2 weeks, how often have you been bothered by any of the following problems? 1. Little interest or pleasure in doing things: not at all 2. Feeling down, depressed, or hopeless: not at all 3. Trouble falling or staying asleep, or sleeping too much: not at all 4. Feeling tired or having little energy: not at all 5. Poor appetite or overeating: not at all 6. Feeling bad about yourself - or that you are a failure or have let yourself or your family down: not at all 7. Trouble concentrating on things, such as reading the newspaper or watching television: not at all 8. Moving or speaking so slowly that other people could have noticed. Or the opposite - being so fidgety or restless that you have been moving around a lot more than usual: not at all 9. Thoughts that you would be better off or of hurting yourself in some way: not at all Total score: 0 Depression Screening Interpretation: Negative Depression Screening Done: Yes 83729 - PHQ-9 Billing: Yes Source: Developed by Drs. Bayron Pozo, Clarisse Sutton, Cody Lee and colleagues, with an educational nadrzej from [employer]. Thrive Questionnaire Date Thrive assessed: 09/18/24 I am a: Patient What is your living situation today?: I have a steady place to live Within the past 12 months, did the food you bought not last and you didn't have the money to get more?: Never true Within the past 12 months, did you worry whether your food would run out before you got money to buy more?: Never true Do you have trouble paying for medicines?: No Do you have trouble getting transportation to medical appointments?: No Do you have trouble paying your heating and electricity bill?: No Do you have trouble taking care of your child, family member or friend?: No Do you have trouble with day-to-day activities such as bathing, preparing meals, shopping, managing finances, etc.?: No Are you currently unemployed and looking for a job?: No Are you interested in more education?: No Please select the resources that you would like help with: None Currently or been in a relationship where the following occur: No concerns reported THRIVE Score: 0 AUDIT C Alcohol Use Questionnaire (AUDIT-C) 1. How often do you have a drink containing alcohol?: Never 3. How often do you have six or more drinks on one occasion?: Never Total Score: 0 PUSHPA-7 AMB Questionnaire PUSHPA-7 Date PUSHPA - 7 assessed: 09/18/24 Feeling nervous, anxious, or on edge: 0 = Not at all Not being able to stop or control worryin = Not at all Worrying too much about different things: 0 = Not at all Trouble relaxin = Not at all Being so restless that it is hard to sit still: 0 = Not at all Becoming easily annoyed or irritable: 0 = Not at all Feeling afraid as if something awful might happen: 0 = Not at all Total PUSHPA-7 score (0-4 normal; 5-9 mild; 10-14 moderate; 15-21 severe): 0 Source: Developed by Drs. Bayron Pozo, Clarisse Sutton, Cody Lee and colleagues, with an educational andrzej from [employer]. PUSHPA-7 Assessment Billing PUSHPA-7 Assessment Tool: PUSHPA-7 Assessment 82422 Physical exam (Primary Care) Vital Signs: Last Vital Signs Pulse 76 09/18/24 15:59 BP 126/80 09/18/24 15:59 Pulse Ox 99 09/18/24 15:59 Oxygen Delivery Method Room Air 09/18/24 15:59 BMI result Body Mass Index 31.6 Tobacco/Smoking Status: Tobacco use Status Tobacco use date assessed 09/18/24 09/18/24 16:03 Patient Tobacco Use Status Never used Tobacco 09/18/24 16:03 e-Cigarette/Vaping Use Never Used 09/18/24 16:03 PHQ-9: PHQ-9 Score PHQ-9: Total score 0 09/18/24 16:03 Depression Screening Interpretation: Negative Thrive Assessment: Date of Thrive Assessment Date Thrive assessed 09/18/24 09/18/24 16:03 Currently or been in a relationship where the following occur: No concerns reported Coding Level of Care Code Est Pt Prev Care 18-39y(42614) Diagnoses Physical exam Z00.00 Right foot pain M79.671 Right foot injury S99.921A Additional Codes PUSHPA-7 Assessment Billing - PUSHPA-7 Assessment Tool: PUSHPA-7 Assessment 20127 ([id number]) PHQ-9 - 86537 - PHQ-9 Billing: Yes ([id number]) Assessment & Plan Assessment & Plan (1) Physical exam: Code(s): Z00.00 - Encounter for general adult medical examination without abnormal findings Category: Medical (2) Right foot pain: Code(s): M79.671 - Pain in right foot Category: Medical (3) Right foot injury: Code(s): S99.921A - Unspecified injury of right foot, initial encounter Category: Medical Plan . Orders: Orders Comprehensive [place]. Panel Fast Today Z00.00 - Encounter for general adult medical examination without abnormal findings Lipid Panel Today Z00.00 - Encounter for general adult medical examination without abnormal findings Complete Blood Count Auto Diff Today Z00.00 - Encounter for general adult medical examination without abnormal findings TSH reflex Free T4 Today Z00.00 - Encounter for general adult medical examination without abnormal findings UA CC w/rflx Micro + Cult Today Z00.00 - Encounter for general adult medical examination without abnormal findings MR foot RT wo con Today M79.671 - Pain in right foot
[2024-09-18 15:59] VITALS: BP 126/80; PULSE 76; O2SAT 99; BMI 31.6
== END 2024-09-18 16:48 | disposition home or self-care (01) ==
PROVIDERS: PCP Nurse Practitioner Family; Visit Provider Nurse Practitioner Family
DX: Z00.00 Encounter for general adult medical examination without abnormal findings (principal); M79.671 Pain in right foot; S99.921A Unspecified injury of right foot, initial encounter

== ENCOUNTER → 2024-09-18 15:49 | Outpatient (BNVA) | payer BC, SELFPAY | PROVIDERS: PCP Nurse Practitioner Family; Visit Provider Nurse Practitioner Family | DX: Z00.01 Encounter for general adult medical examination with abnormal findings (principal); M79.671 Pain in right foot; S99.921A Unspecified injury of right foot, initial encounter; X50.1XXA Overexertion from prolonged static or awkward postures, initial encounter; Y93.9 Activity, unspecified; Y92.9 Unspecified place or not applicable; Y99.9 Unspecified external cause status | CPT/HCPCS: 96127 ==

== ENCOUNTER 2025-03-23 14:06 | Outpatient (AMB) | payer OTHER, SELFPAY ==
--- NOTE | 2025-03-23 14:10 | MHC.PC.OV ---
Vital Signs 03/23/25 14:13 Height 5 ft 5 in Weight 186 lb BMI 30.9 BP 110/70 Blood Pressure Location Rt brachial Position Sitting Respiration 16 Pulse 86 Pulse Source Pulse Oximeter Temp 98.5 F Temp Source Oral Pulse Oximetry (%) 98 Oxygen Delivery Method Room Air Intake Visit Reasons: 6 months f/up Intake Note: Pt is here today for her 6mo. f/u Allergies No Known Allergies (No Known Allergies*) Allergy (Verified 03/23/25 14:28) Medication List - Last Reconciled 03/23/25 by Sage Marks, [facility]- amitriptyline 10 mg PO BEDTIME lorazepam 0.5 mg PO DAILY PRN ondansetron 8 mg PO Q12H PRN 15 days sertraline 50 mg PO DAILY Tobacco use date assessed: 03/23/25 Dental Screening Dental Screen Date: 03/23/25 Did you have a dental visit in the last 12 months?: Yes Did you have a dental problem in the last 6 months where you did not have access to dental care?: No Was dental information given to patient?: Patient has dentist HPI 6 months f/up HPI Details Chief Complaint The patient reports her anxiety and depression have been fairly well controlled. History of Present Illness The patient is a 39-year-old female presenting with a 6-month follow-up visit. Her anxiety and depression are well managed with lorazepam as needed, and she denies any suicidal or homicidal ideation. She reports nocturnal leg cramps, for which magnesium oxide and hydration have been recommended. 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 Health Maintenance Review of Systems - Psychiatric: Reports well-controlled anxiety and depression. Denies suicidal or homicidal ideation. - Musculoskeletal: Reports nocturnal leg cramps. Physical Exam General: Cooperative, healthy appearing, comfortable, no acute distress and well developed Orientation: Patient oriented x3 Limitations: No limitations Head: Normal to inspection Ears: Hearing grossly normal bilaterally Nose: Normal external nose present Face and sinus: Normal facial exam Eyes: Appearance normal, both eyes and all related structures Neck: Normal visual inspection and Yes full ROM Respiratory: Normal respiratory effort and able to speak in complete sentences. Clear to auscultation bilaterally Cardiovascular: Regular rate and rhythm. Normal S1 and S2 GI: Normal to inspection. Soft to palpation and nontender Skin: No rashes or lesions noted Neuro: Patient oriented x3 Extremities: Normal to inspection Plan The patient's anxiety and depression management with lorazepam as needed will continue. For nocturnal leg cramps, magnesium oxide supplementation and hydration are recommended. Discussion Notes I discussed with the patient the importance of continuing her current medication regimen for anxiety and depression. We also talked about managing her nocturnal leg cramps with magnesium oxide and staying hydrated. Patient Instructions - Continue taking lorazepam as needed for anxiety and depression. - Restart magnesium oxide for leg cramps. - Stay hydrated to help prevent leg cramps. [facility] Surgical History Hx of breast surgery History of section Family History Father HTN (hypertension) Mother HTN (hypertension) Stroke Fibromyalgia Maternal Grandmother CVD (cardiovascular disease) Cancer Maternal Grandfather No problems noted. Paternal Grandmother Cancer Paternal Grandfather No problems noted. Brother No problems noted. Son No problems noted. Daughter No problems noted. Other Substance abuse Social History Housing: House Patient Tobacco Use Status: Never used Tobacco e-Cigarette/Vaping Use: Never Used Second Hand Smoke Exposure: No service: No Current occupational status: employed Current occupational exposures/hazards: Yes Cognitive needs: No Hearing needs: No Vision needs: No Questionnaire PHQ-9 Over the last 2 weeks, how often have you been bothered by any of the following problems? 1. Little interest or pleasure in doing things: not at all 2. Feeling down, depressed, or hopeless: not at all 3. Trouble falling or staying asleep, or sleeping too much: not at all 4. Feeling tired or having little energy: not at all 5. Poor appetite or overeating: not at all 6. Feeling bad about yourself - or that you are a failure or have let yourself or your family down: not at all 7. Trouble concentrating on things, such as reading the newspaper or watching television: not at all 8. Moving or speaking so slowly that other people could have noticed. Or the opposite - being so fidgety or restless that you have been moving around a lot more than usual: not at all 9. Thoughts that you would be better off or of hurting yourself in some way: not at all Total score: 0 Depression Screening Interpretation: Negative Depression Screening Done: Yes 02387 - PHQ-9 Billing: Yes Source: Developed by Drs. Bayron Pozo, Clarisse Sutton, Cody Lee and colleagues, with an educational andrzej from [employer]. Thrive Questionnaire Date Thrive assessed: 09/18/24 I am a: Patient What is your living situation today?: I have a steady place to live Within the past 12 months, did the food you bought not last and you didn't have the money to get more?: Never true Within the past 12 months, did you worry whether your food would run out before you got money to buy more?: Never true Do you have trouble paying for medicines?: No Do you have trouble getting transportation to medical appointments?: No Do you have trouble paying your heating and electricity bill?: No Do you have trouble taking care of your child, family member or friend?: No Do you have trouble with day-to-day activities such as bathing, preparing meals, shopping, managing finances, etc.?: No Are you currently unemployed and looking for a job?: No Are you interested in more education?: No Please select the resources that you would like help with: None Currently or been in a relationship where the following occur: No concerns reported THRIVE Score: 0 AUDIT C Alcohol Use Questionnaire (AUDIT-C) 1. How often do you have a drink containing alcohol?: Never Total Score: 0 PUSHPA-7 AMB Questionnaire PUSHPA-7 Date PUSHPA - 7 assessed: 09/18/24 Feeling nervous, anxious, or on edge: 0 = Not at all Not being able to stop or control worryin = Not at all Worrying too much about different things: 0 = Not at all Trouble relaxin = Not at all Being so restless that it is hard to sit still: 0 = Not at all Becoming easily annoyed or irritable: 0 = Not at all Feeling afraid as if something awful might happen: 0 = Not at all Total PUSHPA-7 score (0-4 normal; 5-9 mild; 10-14 moderate; 15-21 severe): 0 Source: Developed by Drs. Bayron Pozo, Clarisse Sutton, Cody Lee and colleagues, with an educational andrzej from [employer]. Physical exam (Primary Care) Vital Signs: Last Vital Signs Temp 98.5 F 03/23/25 14:13 Pulse 86 03/23/25 14:13 Resp 16 03/23/25 14:13 BP 110/70 03/23/25 14:13 Pulse Ox 98 03/23/25 14:13 Oxygen Delivery Method Room Air 03/23/25 14:13 BMI result Body Mass Index 30.9 Tobacco/Smoking Status: Tobacco use Status Tobacco use date assessed 03/23/25 03/23/25 14:13 Patient Tobacco Use Status Never used Tobacco 03/23/25 14:13 e-Cigarette/Vaping Use Never Used 03/23/25 14:13 PHQ-9: PHQ-9 Score PHQ-9: Total score 0 03/23/25 14:13 Depression Screening Interpretation: Negative Thrive Assessment: Date of Thrive Assessment Date Thrive assessed 09/18/24 03/23/25 14:13 Currently or been in a relationship where the following occur: No concerns reported Coding Level of Care Code Est Pt Level 3 (93702) Diagnoses Anxiety F41.9 Depression F32.9 Leg cramps R25.2 Additional Codes PHQ-9 - 40857 - PHQ-9 Billing: Yes ([id number]) Assessment & Plan Assessment & Plan (1) Anxiety: Code(s): F41.9 - Anxiety disorder, unspecified Category: Medical (2) Depression: Code(s): F32.9 - Major depressive disorder, single episode, unspecified Category: Medical (3) Leg cramps: Code(s): R25.2 - Cramp and spasm Category: Medical Plan .
[2025-03-23 14:13] VITALS: BP 110/70; PULSE 86; RESP 16; TEMP 36.9; O2SAT 98; BMI 30.9
--- OUTSIDE RECORDS SUMMARY | 2025-03-23 14:42 | XMS_ITS | Clinical Summary ---
Author Organization [facility] Address [address] [place] [address] Care Team Providers Care Program Project Manager Name Role Phone Unavailable Primary Care Provider Unavailabl e Social History Tobacco Use Types Packs/Day Years Used Date Smoking Tobacco: Never Assessed Sex and Gender Information Value Date Recorded Sex Assigned at Female 01/14/2021 12:07 AM EDT Gender Identity Not on file Sexual Orientation Not on file Job Start Date Occupation Industry Not on file Not on file Not on file Plan of Treatment Not on file Additional Health Concerns Infection Onset Date Last Indicated COVID-19 Confirmed Comment:09/12/21:detected 09/08/21 &09/02/21: not detected 09/13/2021 09/13/2021
--- OUTSIDE RECORDS SUMMARY | 2025-03-23 14:42 | XMS_ITS | Clinical Summary ---
Author Organization [facility] it Address [address] [place] [address] Care Team Providers Care Behavior Management Specialist Name Role Phone Unavailable Primary Care Provider Unavailabl e Social History Tobacco Use Types Packs/Day Years Used Date Smoking Tobacco: Never Assessed Comments Unknown Sex and Gender Information Value Date Recorded Sex Assigned at Not on file Legal Sex Female 3:22 AM EST Gender Identity Not on file Sexual Orientation Not on file Plan of Treatment Health Maintenance Due Date Last Done Comments DTaP,Tdap,and Td Vaccines (1 - Tdap) 2006 Hepatitis B Vaccines (1 of 3 - 19+ 3-dose series) 2006 Cervical Cancer Screening: P ap Smear 2008 COVID-19 Vaccine (2023-2 5 season) 2024 Influenza Vaccine (Season Ended) 2025 HIB Vaccines Aged Out No longer eligi ble based on patient's age to complete this topic HPV Vaccines Aged Out No longer eligi ble based on patient's age to complete this topic Hepatitis A Vaccines Aged Out No long er eligible based on patient's age to complete this topic IPV Vaccines Aged Out No longer eligi ble based on patient's age to complete this topic MMR Vaccines Aged Out No longer eligi ble based on patient's age to complete this topic Meningococcal ACWY Vaccine Aged Out N o longer eligible based on patient's age to complete this topic Meningococcal B Vaccine Aged Out No l onger eligible based on patient's age to complete this topic Pneumococcal Vaccine: Pediat rics (0 to 5 Years) and At-Risk Patients (6 to 64 Years) Aged Out No longer eligible b ased on patient's age to complete this topic RSV Immunization Patients Un mohan 20 months Aged Out No longer eligible b ased on patient's age to complete this topic Varicella Vaccines Aged Out No longer eligible based on patient's age to complete this topic
== END 2025-03-23 16:48 | disposition home or self-care (01) ==
LOC: HO.HMCC 14:07
PROVIDERS: PCP Nurse Practitioner Family; Visit Provider Nurse Practitioner Family
DX: F41.9 Anxiety disorder, unspecified (principal); F32.9 Major depressive disorder, single episode, unspecified; R25.2 Cramp and spasm

== ENCOUNTER → 2025-03-23 14:06 | Outpatient (BNVA) | payer OTHER, SELFPAY | PROVIDERS: PCP Nurse Practitioner Family; Visit Provider Nurse Practitioner Family | DX: R25.2 Cramp and spasm (principal); F41.9 Anxiety disorder, unspecified; F32.A Depression, unspecified | CPT/HCPCS: 96127 ==

== ENCOUNTER 2025-04-06 07:08 | Outpatient (REF) | payer OTHER, SELFPAY ==
[2025-04-06 10:44] LABS: MANUAL DIFF FLAG NO
[2025-04-06 10:48] LABS: Hematocrit 37.9 % (37.0-47.0); Hemoglobin 12.9 g/dl (12.0-16.0); Imm Gran Abs Auto 0.04 X10*3/uL (0.00-0.03); Imm Gran Pct Auto 0.3 % (0.0-0.4); Lymphocytes Absolute Auto 2.0 X10*3/uL (1.2-4.9); Mean Corpuscular HGB Conc 34.0 g/dl (31.0-35.0); Mean Corpuscular Hemoglobin 30.2 pg (27.0-33.0); Mean Corpuscular Volume 88.8 fL (80.0-98.0); NRBC Abs Auto 0.000 X10*3/uL (0.0-0.012); NRBC Pct Auto 0.0 /100WBC (0.0-0.2); Platelet Count 229 X10*3/uL (160-400); Red Blood Count 4.27 X10*6/uL (4.20-5.50); White Blood Count 12.1 X10*3/uL (4.8-10.8)
[2025-04-06 10:50] LABS: Appearance Urine Turbid; Glucose Urine UA Negative (Negative); PH 5.5 (5.0-9.0); Specific Gravity - Urine >= 1.030 (1.005-1.025)
[2025-04-06 11:19] LABS: HIV Num 1 0.15 S/CO (0.00-0.99)
[2025-04-06 11:21] LABS: Alanine Aminotransferase 18 U/L (0-31); Albumin Level 4.5 g/dL (3.5-5.0); Alkaline Phosphatase 62 U/L (39-117); Anion Gap 13 (12-20); Aspartate Amino Transferase 23 U/L (5-31); Blood Urea Nitrogen 13 mg/dL (9-16); Calcium 8.9 mg/dL (8.4-10.2); Carbon Dioxide 24 mmol/L (22-29); Chloride 104 mmol/L (96-108); Cholesterol 160 mg/dL (<200); Estimated Glomerular Filt Rate > 60; HDL Cholesterol 58 mg/dL (>40); Potassium 3.5 mmol/L (3.3-5.1); Sodium 137 mmol/L (135-145); Syphilis Screen Nonreactive (Nonreactive); Total Protein 7.0 g/dL (6.5-8.0); Triglycerides 47 mg/dL (<150)
[2025-04-06 13:50] LABS: CT PCR Urine NOT DETECTED (Not Detect.); NG PCR Urine NOT DETECTED (Not Detect.)
== END 2025-04-06 07:09 | disposition home or self-care (01) ==
LOC: HO.HMGCLDS 07:08
PROVIDERS: Nurse Practitioner Family; PCP Nurse Practitioner Family; Visit Provider Nurse Practitioner Family
DX: Z20.2 Contact with and (suspected) exposure to infections with a predominantly sexual mode of transmission (principal); Z11.3 Encounter for screening for infections with a predominantly sexual mode of transmission; Z11.4 Encounter for screening for human immunodeficiency virus [HIV]; Z00.00 Encounter for general adult medical examination without abnormal findings
CPT/HCPCS: 36415; 80053; 80061; 81003; 81025; 84443; 84702; 85025; 86780; 87389; 87491; 87591

== ENCOUNTER 2025-04-06 07:40 | Outpatient (AMB) | payer OTHER, SELFPAY ==
--- NOTE | 2025-04-06 07:45 | AM.OFFWIN_ITS ---
Intake Vital Signs 04/06/25 07:46 Height 5 ft 5 in Weight 185 lb BMI 30.8 BP 110/78 Blood Pressure Location Lt brachial Position Sitting Pulse 106 H Pulse Source Pulse Oximeter Temp 98.6 F Temp Source Oral Pulse Oximetry (%) 98 Oxygen Delivery Method Room Air Intake Visit Reasons: EP-std testing Intake Note: presents with concern for STD d/t exposure, menses 2 wks late Patient Tobacco Use Status: Never used Tobacco Allergies No Known Allergies (No Known Allergies*) Allergy (Verified 04/06/25 07:47) Do you need a note to return to daycare/school/sports/work: No HPI HPI Comments History of Present Illness Details 39 y/o Female patient who presents to [facility] asking for STI testing. Reports 2 weeks ago had unprotected intercourse with an individual who was not her , later on found out he had slept with multiple women. Pt had urinary symptoms then and was treated with a 10 day course of Macrobid. Today denies vaginal or Urinary symptoms. She does report that her periods have been late for 2 weeks - asking for Blood HCG. [facility] Medical History (Updated 04/06/25 @ 08:08 by Flor Carrasco NP) STD exposure Surgical History Hx of breast surgery History of section Family History Father HTN (hypertension) Mother HTN (hypertension) Stroke Fibromyalgia Maternal Grandmother CVD (cardiovascular disease) Cancer Maternal Grandfather No problems noted. Paternal Grandmother Cancer Paternal Grandfather No problems noted. Brother No problems noted. Son No problems noted. Daughter No problems noted. Other Substance abuse Social History Housing: House Patient Tobacco Use Status: Never used Tobacco e-Cigarette/Vaping Use: Never Used Second Hand Smoke Exposure: No service: No Current occupational status: employed Current occupational exposures/hazards: Yes Cognitive needs: No Hearing needs: No Vision needs: No Review of Systems Const All systems reviewed & are unremarkable except as noted in HPI and below Physical Exam Vital Signs: Last Vital Signs Temp 98.6 F 04/06/25 07:46 Pulse 106 H 04/06/25 07:46 BP 110/78 04/06/25 07:46 Pulse Ox 98 04/06/25 07:46 Oxygen Delivery Method Room Air 04/06/25 07:46 BMI result Body Mass Index 30.8 Const General: no acute distress Nutritional Appearance: overweight Orientation/consciousness: patient oriented x3 Resp Effort & Inspection: normal respiratory effort Cardio Heart sounds: S1 normal heart sound present and S2 normal heart sound present General: Yes no CVA tenderness Back/Spine/Pelvis Back: no CVA tenderness Neuro General: patient oriented x3, gait normal and moves all extremities Psych Speech and movement: Normal speech and movement present Results AMB Test Urine AMB Test Urine Negative Last Edit by Juancho Chang CMA on 04/06/25 08:05 Results Reviewed Results Reviewed: Laboratory Last Values Tst Clinic Negative 04/06/25 08:04 Assessment & Plan Assessment & Plan (1) STD exposure: Code(s): Z20.2 - Contact with and (suspected) exposure to infections with a predominantly sexual mode of transmission Plan: Ordered STI panel (urine/Blood) Urine negative today - Ordered Blood HCG. PCP already ordered Urine culture Will call Patient with results. Orders: Orders HIV Ab/Ag Today Z20.2 - Contact with and (suspected) exposure to infections with a predominantly sexual mode of transmission CT NG by PCR Urine Today Z13.9 - Encounter for screening, unspecified AMB HCG Urine Test Today Z13.9 - Encounter for screening, unspecified Syphilis Screen Today Z20.2 - Contact with and (suspected) exposure to infections with a predominantly sexual mode of transmission HCG Quantitative Today Z20.2 - Contact with and (suspected) exposure to infections with a predominantly sexual mode of transmission Coding Level of Care Code Est Pt Level 4 (74914) Diagnoses STD exposure Z20.2 Time Spent (min) 20
[2025-04-06 07:46] VITALS: BP 110/78; PULSE 106; TEMP 37; O2SAT 98; BMI 30.8
== END 2025-04-06 08:15 | disposition home or self-care (01) ==
PROVIDERS: PCP Nurse Practitioner Family; Visit Provider Nurse Practitioner Family
DX: Z20.2 Contact with and (suspected) exposure to infections with a predominantly sexual mode of transmission (principal); Z13.9 Encounter for screening, unspecified